=== PATIENT | male | born 1985 | race Caucasian/White ===

== ENCOUNTER 2018-11-16 19:04 | Emergency (ER) | payer MEDICAID ==
[~2018-11-16] VITALS: Ht 185.4 cm; Wt 103.0 kg
[2018-11-16 19:32] VITALS: Ht 185.4 cm; Wt 103.0 kg
[2018-11-16 20:16] VITALS: BP 142/71
== END 2018-11-16 20:16 | disposition home or self-care (01) ==
LOC: ED 19:04
DX: S61.212D Laceration without foreign body of right middle finger without damage to nail, subsequent encounter (principal); L03.011 Cellulitis of right finger; X58.XXXD Exposure to other specified factors, subsequent encounter